=== PATIENT | male | born 2000 | race Caucasian/White ===

== ENCOUNTER 2018-08-01 20:35 | Emergency (ER) | payer OTHER ==
[2018-08-01 20:42] VITALS: BP 125/79
[2018-08-01] MEDS ORDERED: IBUPROFEN 600 MG TAB PO ONE (21:04)
--- NOTE | 2018-08-01 21:04 | EDPHY ---
General Time Seen by Provider: 08/01/18 20:43 Narrative: CHIEF COMPLAINT: Right ankle pain, injury HISTORY OF PRESENT ILLNESS: Patient presents with complaints of right ankle pain and swelling after injury while playing basketball. This happened just prior to arrival this evening. He was playing basketball when he stepped on someone's foot, landing awkwardly. He describes an eversion injury. Sudden onset of pain and abnormal appearance of the right ankle. The pain is primarily lateral. There is minimal pain medial. Unable to bear weight, 10/10 pain when doing so. Minimal improvement rest. Radiates into the proximal midfoot with weight-bearing. No numbness, tingling or weakness. No pain in the right knee, hip. No head strike or loss of conscious. No pain anywhere else on his person. REVIEW OF SYSTEMS: Ten systems reviewed and are negative unless otherwise noted in the HPI PAST MEDICAL HISTORY: Uncomplicated. Orthopedic injuries PAST SURGICAL HISTORY: Right scaphoid repair. SOCIAL HISTORY: Nonsmoker. [employer] student. Originally from [place]. FAMILY HISTORY: Noncontributory EXAMINATION: General Appearance: Alert, no distress Cardiovascular: Symmetric PT and DP pulses at 2+. Good signs of perfusion to the right foot and lower leg. Neurological: A&O, light sensory symmetric in the feet, plantar and dorsal. Strength is symmetric in the ankle and great toes at 5/5. Skin: Warm and dry, no rash. No petechiae. No purpura. No puncture Extremities: Moderate swelling over the right lateral malleolus with mild edema of the lower ankle. There is tenderness of the lateral malleolus but no deformity. No tenderness of the right calcaneus, right midfoot, right proximal fibula. Range of motion of the right ankle is limited due to pain. Range of motion of the knees symmetric. Psychiatric: Mood and affect normal DIFFERENTIAL DIAGNOSES: Including but not limited to ankle sprain, ankle fracture, ankle dislocation, subluxation MDM: 8:55 p.m. Acute right ankle sprain with eversion injury just prior to arrival. He is neuro intact with no signs of dislocation by examination. He has no tenderness in the mid foot, heel or proximal fibula. X-ray of the ankle is pending. 9:10 p.m. X-ray as read by me, without radiologist, reveals no obvious fracture. We discussed [place] boot and crutches as the patient does have significant swelling and inability to bear weight on the ankle at this time. He has no pain anywhere else. We ordered ibuprofen for him here. We discussed follow up with Orthopedics for definitive care. We discussed ice, elevation, anti- inflammatories for the next several days. We discussed ED precautions for any numbness, tingling, weakness, redness, warmth or fever. He is comfortable this plan. Discharged home stable condition. 9:30 p.m. X-ray has been read by radiologist as soft tissue injury but no obvious bony injury. SUPERVISION: This patient was independently evaluated without direct involvement of or examination by the attending physician. - Diagnostics Imaging Results: Imaging Impressions Ankle X-Ray 08/01/18 20:53 Impression: Mild soft tissue swelling over the lateral malleolus indicating the soft tissue injury. No evidence for fracture. - History Smoking Status: Never smoked - Objective Vital Signs: Initial Vital Signs Temperature (C) 97.7 F 08/01/18 20:40 Heart Rate 82 08/01/18 20:40 Respiratory Rate 18 08/01/18 20:40 Blood Pressure 125/79 H 08/01/18 20:40 O2 Sat (%) 95 08/01/18 20:40 O2 Delivery Mode Room Air Allergies/Adverse Reactions: No Known Allergies Allergy (Unverified 08/01/18 20:40) Medications Given: Discontinued Medications Hydrocodone Bitart/Acetaminophen ([place] 5/325mg Prepack#6) 1 btl TAKEHOME EDNOW ONE Stop: 08/01/18 21:27 Last Admin: 08/01/18 21:29 Dose: 1 btl Ibuprofen (Motrin) 600 mg PO EDNOW ONE Stop: 08/01/18 21:05 Last Admin: 08/01/18 21:13 Dose: 600 mg Departure - Departure Disposition: Home, Routine, Self-Care Clinical Impression: Sprain of calcaneofibular ligament of right ankle, initial encounter Condition: Good Instructions: Hydrocodone/Acetaminophen (By mouth), Ankle Sprain (ED) Additional Instructions: 1. [place] boot and crutches as provided as needed. Weightbearing as tolerated if her pain improves 2. Contact orthopedist on-call, Dr. Quiroz for outpatient definitive care 3. Ice, elevation often 4. Ibuprofen 600 mg every 6-8 hours as needed for pain and swelling 5. ED precautions for worsening pain, numbness, tingling, weakness Referrals: Dick Quiroz MD [Medical Doctor] - As per Instructions
[2018-08-01] MEDS ORDERED: HYDROCOD/APAP 5/325 PREPACK#6 BTL TAKEHOME ONE (21:26)
== END 2018-08-01 21:33 | disposition home or self-care (01) ==
DX: S93.411A Sprain of calcaneofibular ligament of right ankle, initial encounter (principal); X50.9XXA Other and unspecified overexertion or strenuous movements or postures, initial encounter; Y93.67 Activity, basketball; Y92.310 Basketball court as the place of occurrence of the external cause
CPT/HCPCS: L4386